=== PATIENT | female | born 1980 | race American Indian/Alaskan Native ===

== ENCOUNTER 2019-11-17 10:22 | Day surgery (SDC) | payer OTHER ==
--- NOTE | 2019-11-07 14:20 | History and Physical Report ---
History of Present Illness Date of examination: 11/17/19 History of present illness: PT is a 39 yo G0 with bothersome RLQ pain for over a month. PT had a CT showing a 6.8 cm adnexal cyst. U/S after showed a 6.3 x 4 cm right hydrosalpinx. Ovaries were WNL. She had been told she has had a dilated tube in the past, ye ars ago, but not this big. PT has had surgery over 15 years ago for an ovarian cyst and was told she had a lot scarring in the right adnexal region then. She notes h/o PID and chlamydia years ago. She also notes that she had a chromotubation during that surgery in 2002 showing blockage of both tubes (per pt). HSG in 2015 also showed blockage of both tubes. PT does want to conceive in the future. Pt will be presenting on 11/16 for a lap right salpingectomy. PT does not want the left tube removed unless it also has a significant hydrosalpinx. Otherwise, she wants left tube to be left in. Past History Past Medical History: other (depression, HSV, PCOS) Past Surgical History: WINE MASTER/uterine surgery (WINE MASTER laparoscopy), D&C WINE MASTER History: other (h/o PID, h/o B/L tubal occlusion) Social history: no significant social history - Obstetrical History : 0 Medications and Allergies Allergies Allergy/AdvReac Type Severity Reaction Status Date / Time No Known Allergies Allergy Verified 11/17/19 11:07 Home Medications Medication Instructions Recorded Confirmed Last Taken Type Zolpidem [Ambien] 5 mg PO QHS PRN 11/09/19 11/17/19 11/15/19 History clonazePAM [ Klonopin] 0.5 mg PO BID PRN 11/09/19 11/17/19 11/16/19 History Review of Systems All systems: negative (except HPI) - Vital Signs Vital signs: See EMR charting - Physical Exam Cardiovascular: Regular rate, No murmurs Lungs: Positive: Clear to auscultation, Normal air movement Abdomen: Positive: normal appearance, soft Results Result Diagrams: 11/14/19 12:30 All other labs normal. Assessment and Plan - Patient Problems (1) Hydrosalpinx Current Visit: No Status: Acute (2) Pelvic pain Current Visit: No Status: Acute Plan to address problem: PT is for lap right salpingectomy on 11/16. Pt agrees that if scarring is too significant to do laparoscopically, then ex lap will be done. Patient fully consented for the surgery prior to surgery today. Risks, benefits, and alternatives were all discussed with the patient including risk of bleeding, infection, and potential for injury. Patient understands and accepts these risks. Patient agrees to proceed with surgery. All questions were answered. H&P is up-to-date.
[2019-11-14 12:37] LABS: Hemoglobin 12.1 gm/dl (10.1-14.3); Mean Corpuscular HGB Conc 35 % (30-34); Mean Corpuscular Volume 95 fl (79-97); Platelet Count 214 K/mm3 (140-440); Red Blood Count 3.69 M/mm3 (3.65-5.03); Red Cell Distribution Width 12.5 % (13.2-15.2)
[~2019-11-17 10:22] MED LIST: CELECOXIB 200 MG CAP PO NR; GABAPENTIN 300 MG CAP PO NR; LACTATED RINGERS 1,000 ML IV SCH; MAGNESIUM OXIDE 400 MG TAB PO SCH; MIDAZOLAM 2 MG/2 ML INJ IV NR
[2019-11-17] MEDS ORDERED: HYDROmorphone 1 MG/1 ML INJ IV PRN (10:44)
--- NOTE | 2019-11-17 10:54 | Anesthesia Consultation ---
Anesthesia Consult and Med Hx Date of service: 11/17/19 - Airway Anesthetic Teeth Evaluation: Good ROM Head & Neck: Adequate Mental/Hyoid Distance: Adequate Mallampati Class: Class II Intubation Access Assessment: Probably Good - Pulmonary Exam CTA: Yes - Cardiac Exam Cardiac Exam: RRR - Pre-Operative Health Status ASA Pre-Surgery Classification: ASA3 Proposed Anesthetic Plan: General - Pulmonary Hx Smoking: No Hx Respiratory Symptoms: No - Cardiovascular System Hx Hypertension: No Hx Heart Attack/AMI: No - Central Nervous System CVA: No Hx Psychiatric Problems: Yes (anxiety) - Endocrine Hx Renal Disease: No Hx Liver Disease: No Hx Insulin Dependent Diabetes: No Hx Non-Insulin Dependent Diabetes: No Hx Thyroid Disease: No - Other Systems Hx Obesity: Yes (BMI 43) - Additional Comments Anesthesia Medical History Comments: No hx anesthetic complications.
--- NOTE | 2019-11-17 10:54 | Anesthesia Day of Surgery ---
Anesthesia Day of Surgery - Day of Surgery Patient Examined: Yes Patient H&P Reviewed: Yes Patient is NPO: Yes
[2019-11-17] MEDS ORDERED: propofoL 200 MG/20 ML VIAL IV ONE (12:35)
[2019-11-17] MEDS ORDERED: HYDROmorphone 1 MG/1 ML INJ ONE ×2 (12:35→14:43)
[2019-11-17] MEDS ORDERED: ROCURONIUM 50 MG/5 ML INJ IV ONE (12:36)
[2019-11-17] MEDS ORDERED: LIDOCAINE MPF (2%) 20 MG/1 ML VIAL 5 ML ONE (12:36)
[2019-11-17] MEDS ORDERED: BUPIVACAINE/PF (0.5%) 5 MG/1 ML 10 ML VIAL INFILTRATI ONE (13:08)
[2019-11-17] MEDS ORDERED: BUPIVACAINE/PF (0.5%) 5 MG/1 ML 30 ML VIAL INFILTRATI ONE (14:02)
[2019-11-17] MEDS ORDERED: SODIUM CHLORIDE 0.9% IRR 1,500 ML BOTTLE IR ONE (14:03)
[2019-11-17] MEDS ORDERED: GLYCOPYRROLATE 0.4 MG/2 ML INJ ONE (14:27)
[2019-11-17] MEDS ORDERED: ONDANSETRON 4 MG/2 ML INJ ONE (14:27)
[2019-11-17] MEDS ORDERED: dexAMETHasone 20 MG/5 ML VIAL ONE (14:27)
[2019-11-17] MEDS ORDERED: NEOSTIGMINE 10MG/10 ML INJ MDV ONE (14:27)
[2019-11-17] MEDS ORDERED: KETOROLAC 30 MG/1 ML INJ ONE (14:27)
--- NOTE | 2019-11-17 14:38 | Post Operative Note ---
Date of procedure: 11/17/19 Pre-op diagnosis: Pelvic pain, hydrosalpinx Post-op diagnosis: other (Adhesions) Findings: Patient had a grossly normal looking uterus except on the anterior side she had some adhesions anteriorly particular on the right. These were lysed during the case in case these were causing her pain. Her right tube was significant for a prominent hydrosalpinx and it appeared torsed as well. No evidence of necrosis was noted though. The right ovary appeared normal. There are very mild adhesions posterior to the right ovary which were lysed bluntly during the case. The left tube and ovary appeared to be grossly within normal limits with no evidence of hydrosalpinx and no significant scarring on that side. 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 Patient does have a history of PID. No other gross anomalies were noted during the abdominal/pelvic survey. Procedure: Indication: PT is a 39 yo G0 with bothersome RLQ pain for over a month. U/S after showed a 6.3 x 4 cm right hydrosalpinx. She had been told she has had a dilated tube in the past, years ago, but not this big. PT has had surgery over 15 years ago for an ovarian cyst and was told she had a lot scarring in the right adnexal region then. She notes h/o PID and chlamydia years ago. She also notes that she had a chromotubation during that surgery in 2002 showing blockage of both tubes (per pt). HSG in 2016 also showed blockage of both tubes. PT does want to conceive in the future. Pt will be presenting on 11/16 for a lap right salpingectomy. Patient did not want the left tube excised unless there was a hydrosalpinx there. Procedure: Laparoscopic right salpingectomy and lysis of adhesions. Patient taken the operating room and prepped and draped in usual fashion. Attention was first turned vaginally where single-tooth tenaculum was applied to the anterior lip of the cervix and an acorn uterine manipulator was placed. Attention was now turned abdominally where a 5 mm incision was made in the umbilicus. Veres needle then placed in the abdominal cavity. The abdomen was appropriately insufflated with CO2 gas. Veres needle removed and the 5 mm trocar was placed in abdominal cavity. Placement confirmed with the camera. Attention was turned to the right lower quadrant where about 2 fingerbreadths superior and medial to the ASIS a 5 mm incision was made and the 5 mm trocar was placed under direct visualization without difficulty. Then suprapubically about 2 cm above the the pubic symphysis, an 11 mm incision was made and the 11 mm trocar was placed directly under visualization and was also done without difficulty. Attention was first turned to the excision of the hydrosalpinx on the right. Its attachments were dissected off using the 5 mm LigaSure. Good hemostasis was noted afterwards. Attention was then turned to the above-noted adhesions on the anterior side of the uterus which were lysed using the LigaSure device. At this point good hemostasis was noted throughout. No other significant scarring was noted. The left tube and ovary appeared to be freely mobile as did the right ovary. Abdomen was desufflated and good hemostasis still noted. Abdomen reinsufflated. Interceed placed over the areas of dissection. At this point the Endo catch bag was placed and the right fallopian tube was removed using that bag. This was done without difficulty. In the 11 mm trocar site, the Chris Aleman device was placed. Using that device, 0 Vicryl suture was used to close the fascia at that site. At this point the abdomen was fully desufflated. Trochars were removed. Trocar sites were closed with 4-0 Vicryl in a subcuticular fashion followed by Marcaine. The acorn uterine manipulator and single-tooth tenaculum were removed. Procedure concluded at this point. Patient tolerated the procedure well. All instrument lap counts were correct. Patient taken to the recovery room in stable condition. Anesthesia: GETA Surgeon: NEAL CHRISTIANSON Estimated blood loss: minimal Pathology: list (right tube) Specimen disposition: to lab Condition: stable Disposition: PACU
--- NOTE | 2019-11-17 14:45 | Short Stay Summary ---
Short Stay Documentation Date of service: 11/17/19 Narrative H&P: Patient here for her scheduled laparoscopic right salpingectomy and lysis of adhesions for hydrosalpinx and pelvic pain. Surgery went well and was uncomplicated. Please see H&P and operative report for details. Patient sent home in stable condition and is to follow-up in the office 2 weeks postop - History H&P: dictated Social history: no significant social history - Allergies and Medications Current Medications: Allergies No Known Allergies Allergy (Verified 11/17/19 11:07) Home Medications Medication Instructions Recorded Confirmed Last Taken Type Zolpidem [Ambien] 5 mg PO QHS PRN 11/09/19 11/17/19 11/15/19 History clonazePAM [ Klonopin] 0.5 mg PO BID PRN 11/09/19 11/17/19 11/16/19 History Ibuprofen [Motrin 600 MG tab] 600 mg PO Q6H PRN #30 tablet 11/17/19 Unknown Rx oxyCODONE /ACETAMINOPHEN [Percocet 1 tab PO Q4HR PRN #30 tab 11/17/19 Unknown Rx 5/325] Active Medications Celecoxib (Celebrex) 200 mg PO PREOP NR Stop: 11/17/19 23:00 Last Admin: 11/17/19 12:35 Dose: 200 mg Documented by: Gabapentin (Gabapentin) 300 mg PO PREOP NR Stop: 11/17/19 23:00 Last Admin: 11/17/19 12:35 Dose: 300 mg Documented by: Hydromorphone HCl (Dilaudid) 0.5 mg IV Q10MIN PRN PRN Reason: Pain , Severe (7-10) Stop: 11/17/19 23:59 Lactated Ringer's (Lactated Ringers) 1,000 mls @ 100 mls/hr IV DIRECT BG Stop: 11/17/19 23:59 Last Admin: 11/17/19 12:45 Dose: 100 mls/hr Documented by: Magnesium Oxide (Mag-Ox) 400 mg PO PREOP BG Stop: 11/17/19 23:00 Last Admin: 11/17/19 12:35 Dose: 400 mg Documented by: Midazolam HCl (Versed) 2 mg IV PREOP NR Stop: 11/17/19 23:00 Last Admin: 11/17/19 12:47 Dose: 2 mg Documented by: - Disposition Condition at discharge: Stable Disposition: [id number] TO HOME OR SELFCARE - Discharge Diagnoses (1) Hydrosalpinx Status: Acute (2) Pelvic pain Status: Acute Short Stay Discharge Plan Follow up with: NEAL CHRISTIANSON MD [Staff Physician] - 14 Days Prescriptions: Ibuprofen [Motrin 600 MG tab] 600 mg PO Q6H PRN #30 tablet PRN Reason: Pain oxyCODONE /ACETAMINOPHEN [Percocet 5/325] 1 tab PO Q4HR PRN #30 tab PRN Reason: Pain , Severe (7-10)
[2019-11-17] MEDS ORDERED: oxyCODONE /ACETAMINOPHEN 5-325MG TAB PO PRN (15:21)
[2019-11-17 15:31] VITALS: BP 132/84
== END 2019-11-17 15:50 | disposition home or self-care (01) ==
LOC: OR 10:22
PROVIDERS: ATTEND Obstetrics & Gynecology
DX: N70.11 Chronic salpingitis (principal); R10.2 Pelvic and perineal pain; Z20.828 Contact with and (suspected) exposure to other viral communicable diseases; K66.0 Peritoneal adhesions (postprocedural) (postinfection); G43.909 Migraine, unspecified, not intractable, without status migrainosus; F41.9 Anxiety disorder, unspecified; Z87.440 Personal history of urinary (tract) infections; Z72.89 Other problems related to lifestyle; Z79.899 Other long term (current) drug therapy; Z98.890 Other specified postprocedural states
CPT/HCPCS: 36415; 58661; 84703; 85027; 88302; C1765; J1100; J1170; J1885; J2250; J2405; J2704; J2710; J7120; U0003